=== PATIENT | female | born 2000 | race Caucasian/White ===

== ENCOUNTER 2021-08-13 12:28 | Emergency (ER) | payer BC ==
[~2021-08-13] VITALS: Ht 162.6 cm; Wt 58.8 kg
[2021-08-13 14:49] LABS: RSV AMPLIFICATION NEGATIVE (NEGATIVE)
[2021-08-13 15:29] VITALS: BP 117/52
== END 2021-08-13 15:29 | disposition home or self-care (01) ==
LOC: M ED 12:28
DX: J06.9 Acute upper respiratory infection, unspecified (principal)

== ENCOUNTER → 2021-08-27 | Outpatient (CLI) | payer BC | LOC: M RAD 12:53 | PROVIDERS: ATTEND Physician Assistant | DX: M25.562 Pain in left knee (principal) ==

== ENCOUNTER 2022-09-26 01:16 | Inpatient (IN) | payer BC, SELFPAY ==
[~2022-09-26] VITALS: Ht 162.6 cm; Wt 64.2 kg
[2022-09-26] MEDS ORDERED: NS 1,000 ML IV ONE (01:45)
[2022-09-26 02:02] LABS: BASO # 0.1 10^3/uL (0.0-0.2); BASO % 0.8 % (0.0-1.0); EOS % 0.3 % (0.0-3.0); HEMATOCRIT 46.1 % (36.0-47.0); HEMOGLOBIN 15.2 g/dl (12.0-15.5); LYMPH # 2.6 10^3/uL (1.5-5.0); LYMPH % 36.4 % (24.0-44.0); MEAN CORPUSCULAR HEMOGLOBIN 30.6 pg (27.0-33.0); MEAN CORPUSCULAR VOLUME 92.8 fl (80.0-96.0); MONO # 0.4 10^3/uL (0.0-0.8); MONO % 5.8 % (2.0-8.0); NEUTROPHILS # 4.1 10^3/uL (1.5-8.5); NEUTROPHILS % 56.6 % (36.0-66.0); PLATELET COUNT, AUTOMATED 307 10^3/uL (150-450); RED BLOOD COUNT 4.97 10^6/uL (4.00-5.40); WHITE BLOOD COUNT 7.2 10^3/uL (4.0-10.0)
[2022-09-26 02:26] LABS: ETHYL ALCOHOL (ETHANOL) 0.208 % (0.000-0.010)
[2022-09-26 02:27] LABS: CPK CREATINE PHOSPHOKINASE 137 U/L (34-145)
[2022-09-26 02:28] LABS: ALBUMIN 4.4 G/DL (3.2-5.2); ALKALINE PHOSPHATASE 91 U/L (46-116); ALT/SGPT 17 U/L (7.0-40); AST/SGOT 10 U/L (<34); BILIRUBIN,DIRECT 0.1 MG/DL (<0.4); BILIRUBIN,TOTAL 0.4 MG/DL (0.3-1.2); BLOOD UREA NITROGEN 10 MG/DL (9-23); CALCIUM LEVEL 9.2 MG/DL (8.5-10.1); CARBON DIOXIDE LEVEL 26 MMOL/L (20-31); CHLORIDE LEVEL 108 MMOL/L (98-107); GLOMERULAR FILTRATION RATE > 60.0 (>60); GLUCOSE, FASTING 114 MG/DL (60-100); SALICYLATE LEVEL < 3.0 MG/DL (<30); SODIUM LEVEL 143 MMOL/L (136-145); TOTAL PROTEIN 7.7 G/DL (5.7-8.2)
[2022-09-26 02:30] LABS: THYROID STIMULATING HORMONE 1.837 uIU/ML (0.55-4.78)
[2022-09-26 02:36] LABS: AMPHETAMINES LEVEL URINE NEGATIVE (NEGATIVE); BARBITURATES URINE NEGATIVE (NEGATIVE); BENZODIAZEPINES URINE NEGATIVE (NEGATIVE); COCAINE METABOLITE URINE NEGATIVE (NEGATIVE); METHADONE URINE NEGATIVE (NEGATIVE); OPIATES URINE NEGATIVE (NEGATIVE); PHENCYCLIDINE URINE NEGATIVE (NEGATIVE)
[2022-09-26 02:38] LABS: ACETAMINOPHEN LEVEL 191.9 UG/ML (10.0-20.0); CANNABINOIDS URINE POSITIVE (NEGATIVE)
[2022-09-26 02:46] LABS: HCG, SERUM QUALITATIVE NEGATIVE (NEGATIVE)
[2022-09-26 02:50] LABS: RSV AMPLIFICATION NEGATIVE (NEGATIVE)
[2022-09-26] MEDS ORDERED: D5W IV ONE ×3 (03:00→09:00)
[2022-09-26] MEDS ORDERED: ACETYLCYSTEINE IV ONE ×3 (03:00→09:00)
[2022-09-26 05:06] LABS: INR 1.1; PROTHROMBIN TIME 13.9 SECONDS (12.5-14.5)
[2022-09-26 05:29] LABS: ALBUMIN 3.4 G/DL (3.2-5.2); ALKALINE PHOSPHATASE 70 U/L (46-116); ALT/SGPT 11 U/L (7.0-40); AST/SGOT < 8 U/L (<34); BILIRUBIN,TOTAL 0.3 MG/DL (0.3-1.2); BLOOD UREA NITROGEN 8 MG/DL (9-23); CALCIUM LEVEL 7.9 MG/DL (8.5-10.1); CARBON DIOXIDE LEVEL 23 MMOL/L (20-31); CHLORIDE LEVEL 111 MMOL/L (98-107); CREATININE FOR GFR 0.52 MG/DL (0.55-1.30); GLOMERULAR FILTRATION RATE > 60.0 (>60); GLUCOSE, FASTING 125 MG/DL (60-100); POTASSIUM SERUM 4.2 MMOL/L (3.5-5.1); SODIUM LEVEL 147 MMOL/L (136-145)
[2022-09-26] MEDS ORDERED: D5W/0.45% SODIUM CHLORIDE 1,000 ML IV SCH (05:55)
[2022-09-26] MEDS ORDERED: MED REC IN PROGRESS XX SCH (07:20)
[2022-09-26] MEDS ORDERED: FLUO20CA22 PO (07:36)
[2022-09-26] MEDS ORDERED: HOME MED LIST COMPLETE! XX SCH (07:40)
[2022-09-26 08:16] LABS: ACETAMINOPHEN LEVEL 41.2 UG/ML (10.0-20.0)
[2022-09-26] MEDS ORDERED: THIAMINE 200MG 2ML VIAL IM SCH (09:00)
[2022-09-26 10:14] LABS: ALBUMIN 3.5 G/DL (3.2-5.2); ALKALINE PHOSPHATASE 67 U/L (46-116); ALT/SGPT 13 U/L (7.0-40); AST/SGOT < 8 U/L (<34); BILIRUBIN,TOTAL 0.4 MG/DL (0.3-1.2); BLOOD UREA NITROGEN 6 MG/DL (9-23); CALCIUM LEVEL 7.9 MG/DL (8.5-10.1); CARBON DIOXIDE LEVEL 20 MMOL/L (20-31); CHLORIDE LEVEL 108 MMOL/L (98-107); CREATININE FOR GFR 0.59 MG/DL (0.55-1.30); GLOMERULAR FILTRATION RATE > 60.0 (>60); GLUCOSE, FASTING 111 MG/DL (60-100); POTASSIUM SERUM 3.7 MMOL/L (3.5-5.1); SODIUM LEVEL 142 MMOL/L (136-145); TOTAL PROTEIN 6.3 G/DL (5.7-8.2)
[2022-09-26 23:31] LABS: INR 1.07; PROTHROMBIN TIME 13.6 SECONDS (12.5-14.5)
[2022-09-26 23:41] LABS: ACETAMINOPHEN LEVEL < 2.0 UG/ML (10.0-20.0)
[2022-09-26 23:45] LABS: ALBUMIN 3.5 G/DL (3.2-5.2); ALKALINE PHOSPHATASE 71 U/L (46-116); ALT/SGPT 13 U/L (7.0-40); AST/SGOT 8 U/L (<34); BILIRUBIN,DIRECT 0.3 MG/DL (<0.4); BLOOD UREA NITROGEN < 5 MG/DL (9-23); CARBON DIOXIDE LEVEL 24 MMOL/L (20-31); CHLORIDE LEVEL 105 MMOL/L (98-107); CREATININE FOR GFR 0.69 MG/DL (0.55-1.30); GLOMERULAR FILTRATION RATE > 60.0 (>60); GLUCOSE, FASTING 106 MG/DL (60-100); POTASSIUM SERUM 3.7 MMOL/L (3.5-5.1); SODIUM LEVEL 139 MMOL/L (136-145); TOTAL PROTEIN 6.4 G/DL (5.7-8.2)
[2022-09-27 06:00] VITALS: BP 126/82; TEMP 98.3
[2022-09-27 06:30] VITALS: O2SAT 98
== END 2022-09-27 13:34 | disposition home or self-care (01) | DRG 812 ==
LOC: M ED 01:16 → M ED INP 03:29
PROVIDERS: ADMIT Internal Medicine; ATTEND Internal Medicine
DX: T43.622A Poisoning by amphetamines, intentional self-harm, initial encounter (principal); E87.0 Hyperosmolality and hypernatremia; F41.9 Anxiety disorder, unspecified; F32.A Depression, unspecified; F10.129 Alcohol abuse with intoxication, unspecified